=== PATIENT | male | born 1945 | race Caucasian/White ===

== ENCOUNTER 2019-03-23 10:46 | Emergency (ER) | payer MEDICARE ==
[2019-03-23 11:17] VITALS: BP 136/93
[2019-03-23] MEDS ORDERED: Cephalexin CAP* 500 MG PO ONE (11:27)
--- NOTE | 2019-03-23 11:33 | UC ---
Skin Complaint HPI - HPI Summary HPI Summary: 73 yo male played golf in wet shoes developed a blister on his left middle toe which he popped now toe red with redness on dorsum of foot no fever scheduled for ablation in 6 days - History of Current Complaint Chief Complaint: UCSkin Time Seen by Provider: 03/23/19 11:00 Stated Complaint: LEFT FOOT CONCERN Hx Obtained From: Patient Onset/Duration: Gradual Onset, Lasting Days Timing: Constant Onset Severity: Mild Current Severity: Mild Pain Intensity: 4 Pain Scale Used: 0-10 Numeric Location: Foot (Left) Character: Swelling, Redness, Painful Aggravating Factor(s): Nothing Alleviating Factor(s): Nothing Associated Signs & Symptoms: Positive: Tenderness. Negative: Nausea, Vomiting, Numbness, Thirst, Diaphoresis, Weakness, Pallor, Shivering, Difficulty Breathing , Fever, Chills, Cough, Wheezing, Chest Pain, Hoarseness, Throat Tightening, Rash, Abdominal Pain, Lightheadedness, Syncope, Drainage, Bruising, Red Streaks , Joint Swelling - Allergy/Home Medications Allergies/Adverse Reactions: Allergies Allergy/AdvReac Type Severity Reaction Status Date / Time [id number] Reductase Allergy Pain Verified 03/23/19 11:17 Inhibitor Home Medications: Home Medications Apixaban* [Eliquis*] 5 mg PO DAILY 03/23/19 [History Confirmed 03/23/19] Sotalol TAB* [Betapace 80 MG TAB*] 40 mg PO BID 03/23/19 [History Confirmed ] PMH/Surg Hx/FS Hx/Imm Hx Previously Healthy: Yes Cardiovascular History: Cardiac Disease, Hypertension, Atrial Fibrillation - Surgical History Surgical History: None - Family History Known Family History: Positive: Hypertension - Social History Alcohol Use: None Substance Use Type: None Smoking Status (MU): Former Smoker When Did the Patient Quit Smoking/Using Tobacco: 1979 Review of Systems All Other Systems Reviewed And Are Negative: Yes Constitutional: Positive: Negative Skin: Positive: Negative Eyes: Positive: Negative ENT: Positive: Negative Respiratory: Positive: Negative Cardiovascular: Positive: Negative Gastrointestinal: Positive: Negative Genitourinary: Positive: Negative Motor: Positive: Negative Neurovascular: Positive: Negative Musculoskeletal: Positive: Negative Neurological: Positive: Negative Psychological: Positive: Negative Physical Exam Triage Information Reviewed: Yes Appearance: Well-Appearing, No Pain Distress, Well-Nourished Vital Signs: Initial Vital Signs Temp 97.7 F 03/23/19 11:09 Pulse 54 03/23/19 11:09 Resp 18 03/23/19 11:09 BP 136/93 03/23/19 11:09 Pulse Ox 99 03/23/19 11:09 Vital Signs Reviewed: Yes Eyes: Positive: Conjunctiva Clear ENT: Positive: Hearing grossly normal. Negative: Nasal congestion, Nasal drainage, Tonsillar swelling, Tonsillar exudate, Sinus tenderness, Uvula midline Neck: Positive: Supple, Nontender Respiratory: Positive: Lungs clear, Normal breath sounds, No respiratory distress, No accessory muscle use Cardiovascular: Negative: RRR Neurological: Positive: Alert Skin Exam: Other - see image Images Feet (Multiple View): 1 - draining blister 2 - swollen and red 3 - dorsal foot edema and erythema Course/Dx - Diagnoses Provider Diagnosis: Infected blister of foot or toe, left, Cellulitis of left foot Discharge - Sign-Out/Discharge Documenting (check all that apply): Patient Departure All imaging exams completed and their final reports reviewed: No Studies - Discharge Plan Condition: Stable Disposition: HOME Patient Education Materials: Cellulitis (ED) Referrals: Dax Tracy DO [Primary Care Provider] - 3 Days Additional Instructions: epsom salt soaks 2-3 x day let your prick stitcher know on Monday about this infection see your MD in 2-3 days for recheck a culture is pending - Billing Disposition and Condition Condition: STABLE Disposition: Home
== END 2019-03-23 11:59 | disposition home or self-care (01) ==
LOC: UCCORT 10:46
DX: S90.424A Blister (nonthermal), right lesser toe(s), initial encounter (principal); L03.116 Cellulitis of left lower limb; X58.XXXA Exposure to other specified factors, initial encounter; Y93.53 Activity, golf; Y92.39 Other specified sports and athletic area as the place of occurrence of the external cause; Z87.891 Personal history of nicotine dependence; I10 Essential (primary) hypertension; I48.91 Unspecified atrial fibrillation; Z79.01 Long term (current) use of anticoagulants
CPT/HCPCS: 87070; 87205; 99213; A9270-GY; G0463